=== PATIENT | male | born 1995 | race African-American/Black ===

== ENCOUNTER 2024-03-14 04:14 | Emergency (ER) | payer SELFPAY ==
[~2024-03-14] VITALS: Ht 180.3 cm; Wt 82.2 kg
[2024-03-14 04:46] VITALS: O2SAT 100
[2024-03-14] MEDS ORDERED: IBUP-2029 MT (08:07)
[2024-03-14] MEDS ORDERED: OXYC-100 MT (08:08)
[2024-03-14] MEDS ORDERED: BO1 TP (08:09)
[2024-03-14 08:25] VITALS: BP 124/72; PULSE 89; RESP 18; TEMP 36.66960; O2SAT 100
[2024-03-14] MEDS: TETANUS, DIPHTHERIA, PERTUSSIS VAC/PF 0.5ML (>10YR OLD) IM ONE (09:09)
== END 2024-03-14 10:29 | disposition home or self-care (01) ==
LOC: ER 04:14
DX: S62.141A Displaced fracture of body of hamate [unciform] bone, right wrist, initial encounter for closed fracture (principal); M79.641 Pain in right hand; X58.XXXA Exposure to other specified factors, initial encounter; Y93.89 Activity, other specified; Y92.89 Other specified places as the place of occurrence of the external cause; Y99.8 Other external cause status
CPT/HCPCS: 29125; 73130; 90471; 90715; 99283